=== PATIENT | female | born 1975 | race American Indian/Alaskan Native ===

== ENCOUNTER 2021-01-25 22:03 | Emergency (ER) | payer MEDICAID, OTHER ==
[2021-01-25 22:38] LABS: Basophils # (Auto) 0.1 K/mm3 (0.0-0.1); Basophils % (Auto) 0.9 % (0.0-1.8); Eosinophils # (Auto) 0.5 K/mm3 (0.0-0.4); Eosinophils % (Auto) 4.6 % (0.0-4.3); Hematocrit 39.5 % (30.3-42.9); Hemoglobin 13.1 gm/dl (10.1-14.3); Lymphocytes # (Auto) 2.3 K/mm3 (1.2-5.4); Lymphocytes % (Auto) 22.2 % (13.4-35.0); Mean Corpuscular HGB Conc 33 % (30-34); Mean Corpuscular Volume 88 fl (79-97); Monocytes # (Auto) 0.7 K/mm3 (0.0-0.8); Platelet Count 259 K/mm3 (140-440); Red Blood Count 4.52 M/mm3 (3.65-5.03); Red Cell Distribution Width 14.5 % (13.2-15.2)
[2021-01-25 22:55] LABS: INR 1.04 (0.87-1.13)
[2021-01-25 23:01] LABS: Alanine Aminotransferase 12 units/L (7-56); Albumin 3.8 g/dL (3.9-5); Blood Urea Nitrogen 8 mg/dL (7-17); Hemolysis Index 8
[2021-01-25 23:03] LABS: BUN/Creatinine Ratio 11
[2021-01-26 03:32] VITALS: BP 136/81
== END 2021-01-26 02:39 | disposition home or self-care (01) ==
LOC: ED 22:03
DX: R51.9 Headache, unspecified (principal); Z77.29 Contact with and (suspected) exposure to other hazardous substances
CPT/HCPCS: 80048; 80053; 82962; 85025; 85610; 85730; 99282